=== PATIENT | male | born 1970 | race Caucasian/White ===

== ENCOUNTER 2021-01-02 03:00 | Emergency (ER) | payer MEDICAID, OTHER ==
[2021-01-02 03:17] VITALS: BP 125/75
--- NOTE | 2021-01-02 03:49 | ED Physician Documentation ---
History of Present Illness - Stated complaint Stated Complaint: "FEELING UNWELL" - Chief complaint Chief Complaint: Heent - History obtained from History obtained from: Patient - Additonal information Additional information: Patient comes emergency department chief complaint of "I feel weird tonight." The patient states that he was seen in the walk-in clinic earlier today for right facial swelling and diagnosed with a dental infection. He has a couple of broken and decayed teeth in the area which she thinks are the culprit. The patient was placed on ibuprofen and clindamycin, and states he took both this evening. The patient is an alcoholic and drinks alcohol fairly heavily on a daily basis. He states he did not drink any more than usual tonight. The patient states that around midnight he began to feel "weird", like he was floating up and down. He states that he did not have any nausea or vomiting. He did not take any falls. The patient stated that he was not sure if the medications he was on should mix with alcohol or not, so he decided to come to the emergency department. He does note that his pain seems to be worse again, despite taking the ibuprofen about 8 hours ago. No other complaints at this time. No other medications or drugs besides EtOH. Review of Systems Ten Systems: 10 systems reviewed and negative Constitutional: reports: Reviewed and negative. denies: Fever, Chills Eyes: reports: Reviewed and negative Ears: reports: Reviewed and negative Nose: reports: Reviewed and negative Throat: reports: Dental pain / toothache, Other (Swelling over right mandible) Cardiac: reports: Reviewed and negative Respiratory: reports: Reviewed and negative GI: reports: Reviewed and negative : reports: Reviewed and negative Skin: reports: Reviewed and negative Musculoskeletal: reports: Reviewed and negative Neurologic: reports: Reviewed and negative Psychiatric: reports: Reviewed and negative Endocrine: reports: Reviewed and negative Immunocompromised: reports: Reviewed and negative PD PAST MEDICAL HISTORY - Past Medical History Past Medical History: No Cardiovascular: None Psych: Other Other Past Medical History: Alcoholism - Past Surgical History Past Surgical History: Yes General: Cholecystectomy - Present Medications Home Medications: Ambulatory Orders Medication Instructions Recorded Confirmed Clindamycin [Cleocin] 150 mg PO TID 01/02/21 01/02/21 Ibuprofen [Motrin] 800 mg PO Q8HR PRN 01/02/21 01/02/21 - Allergies Allergies/Adverse Reactions: Allergies Allergy/AdvReac Type Severity Reaction Status Date / Time codeine Allergy Rash Verified 03/26/16 15:43 Penicillins Allergy Hives Verified 01/02/21 03:26 - Social History Does the pt smoke?: Yes Smoking Status: Current every day smoker Does the pt drink ETOH?: Yes ETOH Use: Beer, Liquor Does the pt have substance abuse?: No - Immunizations Immunizations are current?: Yes - POLST Patient has POLST: No PD ED PE NORMAL - Vitals Vital signs reviewed: Yes - General General: Alert and oriented X 3, No acute distress, Well developed/nourished - HEENT HEENT: Atraumatic, PERRL, EOMI, Moist mucous membranes, Other (Poor dentition with severely decayed right mandibular molars and associated gingival edema causing gross swelling of the external tissues over the right mandible. No drainage. No fluctuance) - Neck Neck: Supple, no meningeal sign - Respiratory Respiratory: No respiratory distress - Derm Derm: Normal color, Warm and dry, No rash - Extremities Extremities: No deformity - Neuro Neuro: Alert and oriented X 3, neurologist 2-12 intact, Normal speech, Other (Patient smells of alcohol but is not clinically intoxicated. He walks with a steady gait.) - Psych Psych: Normal mood, Normal affect Results - Vitals Vitals: Vital Signs - 24 hr 01/02/21 03:11 Temperature 37.1 C Heart Rate 84 Respiratory 20 Rate Blood Pressure 125/75 O2 Saturation 96 Oxygen O2 Source Room air PD MEDICAL DECISION MAKING - ED course Complexity details: considered differential, d/w patient ED course: I reviewed the patient's medications and discussed with him that there is no clear contraindication to either these medications with alcohol. We have discussed that both alcohol and the ibuprofen have the potential to cause gastric irritation, and that if he begins to develop left upper quadrant or epigastric pain, he is going to need to leave off both ibuprofen and alcohol. Unfortunately, since he uses alcohol on a regular basis, neither Tylenol nor narcotics are advisable for pain control. The patient should continue his antibiotics, as he clearly has a dental infection. We have discussed the need to contact his dentist as soon as possible to set up a follow-up appointment. We have discussed the usual indications for return. Patient states he has a sober ride home tonight. Departure - Departure Disposition: 01 Home, Self Care Clinical Impression: Dental abscess, Alcohol intoxication Condition: Stable Instructions: ED Abscess Dental, ED Alcohol Intoxication Comments: The main interaction between ibuprofen and alcohol is that both can irritate the stomach. If you begin to experience pain in the left upper portion or middle upper portion of your abdomen, you will need to cut back on both the ibuprofen and the alcohol. At this point in time, ibuprofen is likely to be the only pain medication that is viable for you, as we cannot do sedating pain medications such as narcotics if there is regular alcohol intake. As far as the clindamycin, there is no commonly known interaction with alcohol, and nothing is listed even is a rare side effect on the fine print of the medication pamphlet. It is important that you take antibiotics because you do have an infection around the root of that tooth. You may also use a hot tea bag to encourage drainage of any pus that is accumulating. Please call your dentist first thing on Sunday morning as you plan to do, see you can get your tooth taken care of definitively. Is very important that you do not drive while intoxicated. Please go home with your sober ride, as you have indicated you will do.
== END 2021-01-02 03:55 | disposition home or self-care (01) ==
LOC: ED 03:00
DX: K04.7 Periapical abscess without sinus (principal); K02.9 Dental caries, unspecified; F10.229 Alcohol dependence with intoxication, unspecified; F17.200 Nicotine dependence, unspecified, uncomplicated
CPT/HCPCS: 99281; 99284

== ENCOUNTER 2022-03-17 13:14 | Outpatient (CLI) | payer OTHER ==
--- NOTE | 2022-03-17 16:44 | XRAY Report ---
PROCEDURE: Shoulder 2 View LT INDICATIONS: LEFT SHOULDER PAIN TECHNIQUE: 2 views of the shoulder were acquired. COMPARISON: None. FINDINGS: Bones: No fractures or dislocations. No suspicious bony lesions. Visualized ribs appear intact. Soft tissues: No suspicious soft tissue calcifications. IMPRESSION: No fracture. No osseous lesion. If symptoms and/or clinical concern for pathology persis ts, further assessment with repeat plain film radiographs (7-10 days) or advanced imaging (CT, MR, maría elena ne scan) should be considered. Reviewed by: Lelo Real MD, PhD on 03/17/2022 4:43 PM PDT Approved by: Lelo Real MD, PhD on 03/17/2022 4:43 PM PDT Station ID: [id number]
== END 2022-03-17 13:15 | disposition home or self-care (01) ==
LOC: DI 13:14
PROVIDERS: ATTEND Student in an Organized Health Care Education/Training Program
DX: M25.512 Pain in left shoulder (principal)

== ENCOUNTER 2022-08-20 00:17 | Outpatient (CLI) | payer MEDICAID | END 2022-08-20 00:18 | disposition EMS.NT | LOC: EMS 00:17 | DX: R21 Rash and other nonspecific skin eruption (principal) ==

== ENCOUNTER 2022-08-20 01:46 | Emergency (ER) | payer MEDICAID, OTHER ==
[2022-08-20 02:07] VITALS: BP 130/81
--- NOTE | 2022-08-20 02:26 | ED Physician Documentation ---
PD HPI LOWER EXT INJURY - Stated complaint Stated Complaint: right leg spider bite, pain - Chief complaint Chief Complaint: Wound - History obtained from History obtained from: Patient - History of Present Illness PD HPI LOW EXT INJURY LOCATION: Right, Upper leg, Knee Type of injury: No: Fall, Twist, Puncture wound Where injury occurred: Home Timing - onset: How many hours ago (noted onset of itchin feeling outer thigh and then burning feeling. Lowered his sweat pants and noted an area of mottled redness and tenderness lateral right thigh and side of knee. No fevers. Has a small scab in the area but was unaware of injury.) Timing - details: Abrupt onset (he believes it developed over just several hours, as did not notice any rash earlier in the day with showering.), Still present Associated symptoms: Discolored (redness and some mottled look to skin in oval shaped area.). No: Weakness, Numbness Similar symptoms before: Has not had sx before Recently seen: Not recently seen Review of Systems Constitutional: denies: Fever, Chills Nose: denies: Rhinorrhea / runny nose, Congestion Throat: denies: Sore throat Cardiac: denies: Chest pain / pressure Respiratory: denies: Dyspnea, Cough Skin: reports: Rash PD PAST MEDICAL HISTORY - Past Medical History Cardiovascular: None Psych: Other - Past Surgical History Past Surgical History: Yes General: Cholecystectomy - Present Medications Home Medications: Ambulatory Orders Medication Instructions Recorded Confirmed Clindamycin [Cleocin] 150 mg PO TID 01/02/21 01/02/21 Ibuprofen [Motrin] 800 mg PO Q8HR PRN 01/02/21 01/02/21 Doxycycline Hyclate 100 mg PO BID 7 Days #14 cap 08/20/22 Naproxen 250 mg PO TID 7 Days #20 tablet 08/20/22 - Allergies Allergies/Adverse Reactions: Allergies Allergy/AdvReac Type Severity Reaction Status Date / Time codeine Allergy Rash Verified 08/20/22 02:02 Penicillins Allergy Hives Verified 08/20/22 02:02 - Social History Does the pt smoke?: Yes Smoking Status: Current every day smoker Does the pt drink ETOH?: Yes Does the pt have substance abuse?: No - Immunizations Immunizations are current?: Yes - POLST Patient has POLST: No PD ED PE NORMAL - Derm Derm: Normal color, Warm and dry - Extremities Extremities: Other (rash/mottled redness in oval type area lateral side of knee to lateral lower thigh. Does not goe lower on calf and is wider on thigh than I would expect dermatome per se. ) - Neuro Neuro: Alert and oriented X 3, No motor deficit, No sensory deficit, Normal speech PD ED PE EXPANDED - Extremities TOÑITO LE visual: 1 - rash (mottled appearance of redness) 2 - swelling (with dried scab and 3 small tender blisters around it.) Results - Vitals Vitals: Vital Signs - 24 hr 08/20/22 02:03 Temperature 36.5 C Heart Rate 100 Respiratory 16 Rate Blood Pressure 130/81 H O2 Saturation 97 Oxygen O2 Source Room air PD MEDICAL DECISION MAKING - ED course Complexity details: considered differential (abrupt onset and not in dermatome pattern per se, so less liekly shingles. Has older scab/wound to area that was unaware of. Consider cellulitis. Does not seem like venom effect distribution. ), d/w patient Departure - Departure Disposition: 01 Home, Self Care Clinical Impression: Skin rash Cellulitis Qualifiers: Site of cellulitis: extremity Site of cellulitis of extremity: lower extremity Laterality: right Qualified Code(s): L03.115 - Cellulitis of right lower limb Condition: Stable Record reviewed to determine appropriate education?: Yes Instructions: ED Infec Skin Cellulitis Prescriptions: Doxycycline Hyclate 100 mg PO BID 7 Days #14 cap Naproxen 250 mg PO TID 7 Days #20 tablet Comments: Not exactly clear the cause of the tenderness and rash appearance. It is not exactly in a scan nerve pattern (dermatome) to suggest shingles. It does not have the typical pattern of a venom effect such as spider bite. It is possible that it could be a local venom reaction but less likely. There were no antidotes nor antivenom's for the brown recluse type of spiders to because of venom like this. We typically just see how much effect it has on the skin and then respond to any areas of collected fluid or tissue down the line. There is no intervention at this point. However this does more likely look like a spreading skin infection emanating from the small wound you have on the skin. This will be termed cellulitis and would treated with an antibiotic as well as some anti-inflammatories. I would suggest going with the doxycycline antibiotic and Naprosyn anti- inflammatory as directed for the next week. Warm moist towels to the area and you could use some antibiotic ointment to the scabbed wound. Recheck if not improving well over the next few days and return sooner if spreading notably or he develop generalized symptoms such as fever, nausea, body aches or other concerns. Otherwise follow-up with your primary care this coming week.
[2022-08-20] MEDS ORDERED: MUPIROCIN 2% OINT 1 GM TOP STA (02:41)
[2022-08-20] MEDS ORDERED: DOXYCYCLINE 100 MG TABLET PO STA (02:41)
[2022-08-20] MEDS ORDERED: IBUPROFEN 600 MG TABLET PO STA (02:42)
== END 2022-08-20 03:00 | disposition home or self-care (01) ==
LOC: ED 01:46
DX: L03.115 Cellulitis of right lower limb (principal); F17.200 Nicotine dependence, unspecified, uncomplicated
CPT/HCPCS: 99282; 99283; A9270

== ENCOUNTER 2022-08-28 11:26 | Emergency (ER) | payer MEDICAID ==
--- NOTE | 2022-08-28 14:25 | ED Physician Documentation ---
PD HPI WOUND RECHECK - Stated complaint Stated Complaint: SPIDER BITE - Chief complaint Chief Complaint: Wound - Histroy obtained from History obtained from: Patient - History of Present Illness Location: Right Lower Extremity Pain level max: 5 Pain level now: 3 Associated symptoms: Redness. No: Fever, Drainage - Additional information Additional information: 51-year-old male presents the emergency department stating that he had a wound to the right lower extremity. He states that this occurred about a week ago. He was placed on antibiotics at that time. He states he has improved but still has a few areas of erythema. No drainage. Thinks it may have been from a spider bite. Still having mild pain. There is no drainage. No fevers. No chills. He states he is out of his antibiotics. Review of Systems Constitutional: denies: Fever, Chills GI: denies: Vomiting Skin: denies: Rash Musculoskeletal: denies: Neck pain, Back pain Neurologic: denies: Headache PD PAST MEDICAL HISTORY - Past Medical History Cardiovascular: None Psych: Other - Past Surgical History Past Surgical History: Yes General: Cholecystectomy - Present Medications Home Medications: Ambulatory Orders Medication Instructions Recorded Confirmed Clindamycin [Cleocin] 150 mg PO TID 01/02/21 01/02/21 Ibuprofen [Motrin] 800 mg PO Q8HR PRN 01/02/21 01/02/21 Doxycycline Hyclate 100 mg PO BID 7 Days #14 cap 08/20/22 Naproxen 250 mg PO TID 7 Days #20 tablet 08/20/22 Naproxen 250 mg PO TID PRN #30 tablet 08/28/22 clindamycin HCL [Cleocin HCl] 300 mg PO Q6H #40 cap 08/28/22 - Allergies Allergies/Adverse Reactions: Allergies Allergy/AdvReac Type Severity Reaction Status Date / Time codeine Allergy Rash Verified 08/28/22 11:40 Penicillins Allergy Hives Verified 08/28/22 11:40 - Social History Does the pt smoke?: Yes Smoking Status: Current every day smoker Does the pt drink ETOH?: Yes Does the pt have substance abuse?: No - Immunizations Immunizations are current?: Yes - POLST Patient has POLST: No PD ED PE NORMAL - Vitals Vital signs reviewed: Yes - General General: Alert and oriented X 3, No acute distress, Well developed/nourished - HEENT HEENT: Moist mucous membranes - Neck Neck: Supple, no meningeal sign - Cardiac Cardiac: RRR, Strong equal pulses - Respiratory Respiratory: No respiratory distress, Clear bilaterally - Derm Derm: Warm and dry - Extremities Extremities: Other (There is a reticular pattern to the lateral aspect of the right knee, inferior. There are also 3 small erythematous areas. There are no pustules or vesicles. Mild erythema. Mild tenderness to palpation. No induration. Neurovascularly intact) - Neuro Neuro: Alert and oriented X 3 - Psych Psych: Normal mood, Normal affect Results - Vitals Vitals: Vital Signs - 24 hr 08/28/22 08/28/22 11:38 14:33 Temperature 36.9 C 36.6 C Heart Rate 116 H 98 Respiratory 20 16 Rate Blood Pressure 176/83 H 165/78 H O2 Saturation 97 98 Oxygen O2 Source Room air PD Medical Decision Making - ED course Complexity details: considered differential, d/w patient ED course: Patient with what appears to be a mild cellulitis of the right lower extremity. Unclear etiology. There is nothing to culture at this time. He did improve on doxycycline but not as much as I would have expected, therefore we will trial him on clindamycin. Patient is well-appearing, nontoxic. Afebrile. No evidence of sepsis. Patient counseled regarding signs and symptoms for which I believe and urgent re-evaluation would be necessary. Patient with good understanding of and agreement to plan and is comfortable going home at this time This document was made in part using voice recognition software. While efforts are made to proofread this document, sound alike and grammatical errors may occur. Departure - Departure Disposition: 01 Home, Self Care Clinical Impression: Cellulitis Qualifiers: Site of cellulitis: extremity Site of cellulitis of extremity: lower extremity Laterality: right Qualified Code(s): L03.115 - Cellulitis of right lower limb Condition: Good Instructions: ED Infec Skin Cellulitis Follow-Up: GINETTE VASQUEZ PA [Primary Care Provider] - Within 1 week Prescriptions: clindamycin HCL [Cleocin HCl] 300 mg PO Q6H #40 cap Naproxen 250 mg PO TID PRN #30 tablet PRN Reason: pain Comments: Your prescriptions were sent to [facility] in [place]. Please follow-up with your doctor for a recheck if you are not better in 1 week. Please return sooner if you worsen. Discharge Date/Time: 08/28/22 14:34
[2022-08-28 14:34] VITALS: BP 165/78
== END 2022-08-28 14:34 | disposition home or self-care (01) ==
LOC: ED 11:26
DX: L03.115 Cellulitis of right lower limb (principal); F17.200 Nicotine dependence, unspecified, uncomplicated
CPT/HCPCS: 99282

== ENCOUNTER 2022-09-16 12:09 | Emergency (ER) | payer MEDICAID ==
[2022-09-16 12:20] VITALS: BP 151/100
--- NOTE | 2022-09-16 12:31 | ED Physician Documentation ---
History of Present Illness - Stated complaint Stated Complaint: FOLLOW-UP SPIDER BITE - Chief complaint Chief Complaint: Wound - Additonal information Additional information: History is obtained from the patient who is reliable historian. 51-year-old male presents to the emergency department for evaluation of right leg cellulitis. Seen here initially in late July and then again in mid August by my colleague. He was transition from doxycycline to clindamycin given limited improvement in exam findings. He was to take the clindamycin 4 times a day but has only been taking it twice daily. Despite this he has had no fevers. He reports a lot of pruritus in the affected areas. Minimal pain. He is concerned about a skin tanning around the original site of infection which she is concerned is a sign of persistent infection. Review of Systems Constitutional: denies: Fever, Chills Cardiac: reports: Reviewed and negative Respiratory: reports: Reviewed and negative Skin: reports: Other (Scabbing and skin changes right lower lateral leg) Musculoskeletal: denies: Extremity pain, Joint pain, Extremity swelling Neurologic: reports: Reviewed and negative PD PAST MEDICAL HISTORY - Past Medical History Cardiovascular: None Psych: Other - Past Surgical History Past Surgical History: Yes General: Cholecystectomy - Present Medications Home Medications: Ambulatory Orders Medication Instructions Recorded Confirmed Clindamycin [Cleocin] 150 mg PO TID 01/02/21 01/02/21 Ibuprofen [Motrin] 800 mg PO Q8HR PRN 01/02/21 01/02/21 Doxycycline Hyclate 100 mg PO BID 7 Days #14 cap 08/20/22 Naproxen 250 mg PO TID 7 Days #20 tablet 08/20/22 Naproxen 250 mg PO TID PRN #30 tablet 08/28/22 clindamycin HCL [Cleocin HCl] 300 mg PO Q6H #40 cap 08/28/22 - Allergies Allergies/Adverse Reactions: Allergies Allergy/AdvReac Type Severity Reaction Status Date / Time codeine Allergy Rash Verified 08/28/22 11:40 Penicillins Allergy Hives Verified 08/28/22 11:40 - Social History Does the pt smoke?: Yes Smoking Status: Current every day smoker Does the pt drink ETOH?: Yes Does the pt have substance abuse?: No - Immunizations Immunizations are current?: Yes - POLST Patient has POLST: No PD ED PE EXPANDED - General General: Alert, No acute distress - Extremities Extremities: Right leg (Drying scabs noted on right lateral knee. There is an area of darkened mottled skin changes surrounding the original site of infection. There is no lymphangina erythema or induration. No drainage.), Pedal Pulses Present (2+ DP bilaterally) - Neuro Neuro: CNII-XII intact - GCS Eye Opening: Spontaneous Motor: Obeys Commands Verbal: Oriented Total: 15 Results - Vitals Vitals: Vital Signs - 24 hr 09/16/22 12:17 Temperature 37.2 C Heart Rate 86 Respiratory 17 Rate Blood Pressure 151/100 H O2 Saturation 96 Oxygen O2 Source Room air PD Medical Decision Making - ED course Complexity details: d/w patient ED course: 51-year-old male returns for a wound check of previously noted cellulitis on the right lower lateral leg and knee. He is completed a full course of doxycycline as well as clindamycin. The exam shows no further findings consistent with cellulitis or skin abscess. He does have some mottled skin as well as tanning of the skin around the original site of infection which is consistent with a healing wound. The cellulitis itself appears fully healed I have discussed with the patient his elevated blood pressure readings on multiple ED visits and advised him to follow closely with her primary care provider. Emergent return precautions were discussed with the patient for concerns of reinfection or worsening signs of infection Departure - Departure Disposition: 01 Home, Self Care Clinical Impression: Visit for wound check, Elevated blood pressure reading Condition: Stable Record reviewed to determine appropriate education?: Yes Comments: Corey you returned to the emergency department today for reevaluation of your right leg infection. When I compare your leg today to the picture that you originally took when the infection began on this looks markedly better. The skin changes that you have are common after infections and can take a few months to resolve. Here in the emergency department we do note a modestly elevated blood pressure. Other ED visits have also had elevated blood pressure readings. I encourage you to follow closely with a primary care doctor to determine if you do indeed have high blood pressure and if you would benefit from further treatment of this. Reasons to return to the emergency department would be the development of any fevers, severe pain in this leg, significant beefy redness or any drainage.
== END 2022-09-16 12:38 | disposition home or self-care (01) ==
LOC: ED 12:09
DX: T63.30 Toxic effect of unspecified spider venom (principal); R03.0 Elevated blood-pressure reading, without diagnosis of hypertension
CPT/HCPCS: 99281; 99283

== ENCOUNTER 2023-05-12 00:22 | Outpatient (CLI) | payer MEDICAID | END 2023-05-12 00:23 | disposition critical access hospital (66) | LOC: EMS 00:22 | DX: S61.011A Laceration without foreign body of right thumb without damage to nail, initial encounter (principal); W25.XXXA Contact with sharp glass, initial encounter; Y92.009 Unspecified place in unspecified non-institutional (private) residence as the place of occurrence of the external cause; F10.90 Alcohol use, unspecified, uncomplicated | CPT/HCPCS: A0425; A0429; A0999 ==

== ENCOUNTER 2023-05-12 00:42 | Emergency (ER) | payer MEDICAID ==
[2023-05-12] MEDS ORDERED: TETANUS/DIPHTHERIA/PERTUSSIS 0.5 ML SYRINGE IM ONE (00:46)
--- NOTE | 2023-05-12 00:49 | ED Physician Documentation ---
History of Present Illness - Stated complaint Stated Complaint: HBD, THUMB LAC - History obtained from History obtained from: Patient - Additonal information Additional information: 52-year-old male with last tetanus shot around 20 years ago per his report presents with right first finger laceration on a shot glass to night. Patient has been drinking alcohol. denies difficulty moving finger or other issues PD PAST MEDICAL HISTORY - Past Medical History Cardiovascular: None Psych: Other - Past Surgical History Past Surgical History: Yes General: Cholecystectomy - Present Medications Home Medications: Ambulatory Orders Medication Instructions Recorded Confirmed Clindamycin [Cleocin] 150 mg PO TID 01/02/21 01/02/21 Ibuprofen [Motrin] 800 mg PO Q8HR PRN 01/02/21 01/02/21 Doxycycline Hyclate 100 mg PO BID 7 Days #14 cap 08/20/22 Naproxen 250 mg PO TID 7 Days #20 tablet 08/20/22 Naproxen 250 mg PO TID PRN #30 tablet 08/28/22 clindamycin HCL [Cleocin HCl] 300 mg PO Q6H #40 cap 08/28/22 - Allergies Allergies/Adverse Reactions: Allergies Allergy/AdvReac Type Severity Reaction Status Date / Time codeine Allergy Rash Verified 08/28/22 11:40 Penicillins Allergy Hives Verified 08/28/22 11:40 - Social History Does the pt smoke?: Yes Smoking Status: Current every day smoker Does the pt drink ETOH?: Yes Does the pt have substance abuse?: No - Immunizations Immunizations are current?: Yes - POLST Patient has POLST: No PD ED PE NORMAL - Vitals Vital signs reviewed: Yes - General General: Alert and oriented X 3, No acute distress, Well developed/nourished - HEENT HEENT: Atraumatic, PERRL, EOMI, Ears normal - Neck Neck: Supple, no meningeal sign - Derm Derm: Other (3cm gaping laceration of base of R first finger at palmar aspect without foreign body or tendon involvement. normal cap refill) Results - Vitals Vitals: Vital Signs - 24 hr 05/12/23 00:47 Temperature 36.1 C L Heart Rate 68 Respiratory 16 Rate Blood Pressure 127/67 O2 Saturation 98 Oxygen O2 Source Room air Procedures - Laceration (location) Finger right Length in cm: 3 Wound type: Irregular, Flap, Into subcut fat, Clean Neurovascular status: Sensory intact, Motor intact, Vascular intact Wound preparation: Irrigated copiously NS, Wound explored, To the base Skin layer closure: Nylon, Size #-0 - enter number (4), Sutures - enter # (7) Other: Patient tolerated well, No complications, Neurovascular intact, Dressing applied, Tetanus booster given PD Medical Decision Making - ED course ED course: 52-year-old man presented with laceration of right first finger which was repaired without difficulty. Suture removal in 14 days. Symptomatic care discussed. Return precautions given. Departure - Departure Disposition: 01 Home, Self Care Clinical Impression: Laceration of finger Condition: Stable Instructions: ED Laceration Hand Comments: You were seen in the emergency department for A cut on the finger which was repaired with 7 stitches. The need to be removed in 14 days. Please follow-up with your primary care provider and return to the emergency department if you have any new or worsening symptoms or other concerns.
[2023-05-12 00:57] VITALS: BP 127/67; O2SAT 98
== END 2023-05-12 01:37 | disposition home or self-care (01) ==
LOC: EDUNIT# → ED 00:42
DX: S61.210A Laceration without foreign body of right index finger without damage to nail, initial encounter (principal); W25.XXXA Contact with sharp glass, initial encounter; F17.200 Nicotine dependence, unspecified, uncomplicated
CPT/HCPCS: 12002; 90471; 99283

== ENCOUNTER 2024-01-14 15:35 | Outpatient (CLI) | payer MEDICAID ==
--- NOTE | 2024-01-14 16:35 | CT Report ---
PROCEDURE: Lung Cancer Screen INDICATIONS: SMOKER TECHNIQUE: A CT scan of the chest was performed. Intravenous contrast media was not administered. Images were re corded and evaluated at appropriate window settings. Reformats: axial MIP of the chest, coronal and s agittal. For radiation dose reduction, the following was used: automated exposure control, adjustment of mA and/or kV according to patient size. COMPARISON: None. FINDINGS: Image quality: Excellent. Prior cancer history: Unsure. Lungs and pleura: No pleural effusions. No pneumothorax. No suspicious pulmonary nodules which requi re follow up. Mediastinum: Heart size is normal. No pericardial effusion. No large vessel abnormality. No mediastin al adenopathy by size criteria. Mid esophageal wall thickening. One vessel coronary calcifications. Chest wall and lower neck: Thyroid is unremarkable. No axillary or supraclavicular adenopathy by size . Bones: No aggressive osseous abnormality. 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 T12 in ferior endplate sclerosis, degenerative. Upper Abdomen: Cholecystectomy. IMPRESSION: Lung RAD: 1 - Negative. Recommendation: Continue annual screening in 12 Months with LDCT Non-Lung Significant Findings: Mass - Mediastinum. Mid esophageal wall thickening. Differential inclu paul esophagitis or malignancy. Correlate with symptoms. If asymptomatic, consider endoscopic evaluati on to exclude malignancy. Marked coronary artery calcifications for age. Correlate with risk factors and advise counseling. Reviewed by: Neo Cohen MD on 01/14/2024 4:33 PM PDT Approved by: Neo Cohen MD on 01/14/2024 4:33 PM PDT Station ID: [id number]
== END 2024-01-14 15:36 | disposition home or self-care (01) ==
LOC: DI 15:35
PROVIDERS: ATTEND Student in an Organized Health Care Education/Training Program
DX: Z12.2 Encounter for screening for malignant neoplasm of respiratory organs (principal); K22.9 Disease of esophagus, unspecified; F17.200 Nicotine dependence, unspecified, uncomplicated